=== PATIENT | female | born 1995 | race Caucasian/White ===

== ENCOUNTER 2022-12-08 07:15 | Emergency (ER) | payer OTHER ==
[~2022-12-08] VITALS: Ht 160 cm; Wt 72.6 kg
--- NOTE | 2022-12-08 07:47 | NUR ---
PT IS IN ROOM #1B. DR HALL EVALUATED THE PT.
[2022-12-08] MEDS ORDERED: IBUP-1955 PO (08:04)
[2022-12-08] MEDS ORDERED: CLIN300C12 PO (08:04)
--- NOTE | 2022-12-08 08:43 | NUR ---
Pt was d/c'd to home. D/C instructions given to the pt by dr Correia.
[2022-12-08 08:45] VITALS: BP 131/68
== END 2022-12-08 08:46 | disposition home or self-care (01) ==
LOC: ER 07:15
DX: K02.9 Dental caries, unspecified (principal); K03.2 Erosion of teeth; M25.531 Pain in right wrist; F17.210 Nicotine dependence, cigarettes, uncomplicated; Z88.0 Allergy status to penicillin; Z91.018 Allergy to other foods; Z79.1 Long term (current) use of non-steroidal anti-inflammatories (NSAID); Z79.2 Long term (current) use of antibiotics
CPT/HCPCS: 73110; A4663

== ENCOUNTER 2024-03-13 03:10 | Emergency (ER) | payer OTHER ==
[~2024-03-13] VITALS: Ht 160 cm; Wt 81.6 kg
[~2024-03-13 03:10] MED LIST: CLIN300C12 PO; IBUP-1955 PO
[2024-03-13 04:18] LABS: BASOPHILS % (AUTO) 0.7 % (0.0-2.0); EOSINOPHILS # (AUTO) 0.4 K/uL (0.0-0.7); EOSINOPHILS % (AUTO) 5.9 % (0.0-7.0); HEMATOCRIT 38.5 % (31.2-41.9); HEMOGLOBIN 12.9 g/dL (10.9-14.3); LYMPHOCYTES # (AUTO) 2.7 K/uL (0.8-4.8); LYMPHOCYTES % (AUTO) 44.1 % (20.5-51.5); MEAN CORPUSCULAR HEMOGLOBIN 28.1 uug (24.7-32.8); MEAN CORPUSCULAR HGB CONC 34 g/dL (32.3-35.6); MEAN CORPUSCULAR VOLUME 83.5 fL (75.5-95.3); MONOCYTES # (AUTO) 0.5 K/uL (0.1-1.30); MONOCYTES % (AUTO) 8.1 % (0.0-11.0); NEUTROPHILS # (AUTO) 2.5 K/uL (1.8-8.9); NEUTROPHILS % (AUTO) 41.2 % (38.5-71.5); PLATELET COUNT (AUTO) 337 K/uL (179-408); RED BLOOD CELL COUNT(AUTO) 4.61 MIL/uL (3.63-4.92); RED CELL DISTRIBUTION WIDTH 13.4 % (12.3-17.7); WHITE BLOOD COUNT (AUTO) 6.1 K/uL (3.8-11.8)
[2024-03-13 04:24] LABS: CALCIUM 9.2 mg/dL (8.5-10.1); CREATININE 0.8 mg/dL (0.6-1.3); POTASSIUM 3.7 mmol/L (3.5-5.1)
[2024-03-13 04:25] LABS: DIFFERENTIAL COMMENT 1
[2024-03-13 04:30] LABS: ALBUMIN 3.6 g/dL (3.4-5.0); BILIRUBIN,TOTAL 0.4 mg/dL (0.2-1.0); TOTAL PROTEIN, SERUM 7.7 g/dL (6.4-8.2)
[2024-03-13] MEDS ORDERED: CLIN300C12 PO (05:50)
[2024-03-13 05:59] VITALS: BP 123/79; TEMP 208.9; O2SAT 95
== END 2024-03-13 06:00 | disposition home or self-care (01) ==
LOC: ER 03:14
DX: K04.7 Periapical abscess without sinus (principal); R78.9 Finding of unspecified substance, not normally found in blood; F17.200 Nicotine dependence, unspecified, uncomplicated; Z79.1 Long term (current) use of non-steroidal anti-inflammatories (NSAID); Z79.899 Other long term (current) drug therapy; Z91.018 Allergy to other foods; Z88.0 Allergy status to penicillin
CPT/HCPCS: 36415; 71045; 83605; 84484; 85025; 85730; 86140; 87040; 93005; A4606; A4663